=== PATIENT | female | born 1970 | race Caucasian/White ===

== ENCOUNTER 2016-10-30 19:26 | Emergency (ER) | payer OTHER ==
[~2016-10-30 19:26] MED LIST: ADV250/50 INH; AMBIEN10 MG PO; AZITHROMYCIN250 M1 PO; COZAAR50 MG PO; LAC PO; LATUDA80 M1 PO; LEVAQUIN750 MG PO; MEDDP PO; NOR5 PO; PULMICORT0.5 MG/2 M IH; SIMCOR PO; SINGULAIR10 MG PO; VENTOLIN H0.09 MG/A1 INH; ZOLOFT100 MG PO
[2016-10-30 22:07] VITALS: BP 110/65
== END 2016-10-30 22:08 | disposition home or self-care (01) ==
LOC: ED 19:26
DX: J45.901 Unspecified asthma with (acute) exacerbation (principal); F31.9 Bipolar disorder, unspecified; F43.10 Post-traumatic stress disorder, unspecified; F17.200 Nicotine dependence, unspecified, uncomplicated; Z88.8 Allergy status to other drugs, medicaments and biological substances
CPT/HCPCS: 99406; J7512; Q0092

== ENCOUNTER 2016-12-29 09:17 | Emergency (ER) | payer OTHER ==
[2016-12-29 09:24] VITALS: BP 136/99
== END 2016-12-29 11:13 | disposition left against medical advice (07) ==
LOC: ED 09:17
DX: Z53.21 Procedure and treatment not carried out due to patient leaving prior to being seen by health care provider (principal)

== ENCOUNTER 2017-02-21 05:11 | Emergency (ER) | payer OTHER ==
[~2017-02-21] VITALS: Ht 157.5 cm; Wt 74.8 kg
[2017-02-21 05:50] LABS: BASOPHIL % 0.6 % (0-2); PLATELET COUNT 301 x10^3mcL (130-400)
[2017-02-21 05:58] LABS: CALCIUM 8.9 mg/dL (8.5-10.1); CARBON DIOXIDE 24.3 mmol/L (21-32); CHLORIDE SERUM 107 mmol/L (98-107); CREATININE SERUM 0.9 mg/dL (0.6-1.0); GFR1 > 60 mL/min; GLUCOSE SERUM 117 mg/dL (74-106); POTASSIUM SERUM 3.7 mmol/L (3.5-5.1); SODIUM SERUM 140 mmol/L (136-145)
[2017-02-21 06:04] LABS: ALBUMIN 3.5 g/dL (3.4-5.0); ALKALINE PHOSPHATASE 91 U/L (46-116); ALT/SGPT 25 U/L (14-59); AST/SGOT 21 U/L (15-37); BILIRUBIN TOTAL 0.43 mg/dL (0.20-1.00); TOTAL PROTEIN, SERUM 7.7 g/dL (6.4-8.2)
[2017-02-21 09:54] LABS: AMPHETAMINE QUAL UR POSITIVE (NEG <=1000)
[2017-02-21 13:38] VITALS: BP 132/89
== END 2017-02-21 14:30 ==
LOC: ED 05:11
PROVIDERS: Emergency Medicine
DX: F31.9 Bipolar disorder, unspecified (principal); F43.9 Reaction to severe stress, unspecified; J45.909 Unspecified asthma, uncomplicated; G43.909 Migraine, unspecified, not intractable, without status migrainosus; F15.10 Other stimulant abuse, uncomplicated; Z79.899 Other long term (current) drug therapy; Z88.8 Allergy status to other drugs, medicaments and biological substances
CPT/HCPCS: 36415; G0480; J7620; Q0092

== ENCOUNTER 2017-03-20 20:11 | Inpatient (IN) | payer OTHER ==
[~2017-03-20] VITALS: Ht 160 cm; Wt 75.5 kg
[2017-03-20] MEDS ORDERED: SINGULAIR10 MG PO (21:09)
[2017-03-20] MEDS ORDERED: AMBIEN10 MG PO (21:09)
[2017-03-20] MEDS ORDERED: QVAR0.08 MG/Ac IH (21:09)
[2017-03-20] MEDS ORDERED: VENTOLIN H0.09 MG/A1 INH (21:10)
[2017-03-20 21:18] LABS: BASOPHIL % 0.5 % (0-2); PLATELET COUNT 322 x10^3mcL (130-400); RED CELL DISTRIBUTION WIDTH 13.9 % (11.5-14.5)
[2017-03-20 21:29] LABS: CARBON DIOXIDE 28.4 mmol/L (21-32); CHLORIDE SERUM 109 mmol/L (98-107); CREATININE SERUM 0.9 mg/dL (0.6-1.0); GFR1 > 60 mL/min; GLUCOSE SERUM 95 mg/dL (74-106); POTASSIUM SERUM 3.9 mmol/L (3.5-5.1); SODIUM SERUM 143 mmol/L (136-145)
[2017-03-20 21:56] VITALS: BP 134/84
[2017-03-20 22:02] VITALS: Ht 160 cm; Wt 75.5 kg
[2017-03-20 22:13] LABS: microscopic required? NO
[2017-03-20 22:25] LABS: urine erythrocyte NEGATIVE (NEGATIVE)
[2017-03-20 22:26] VITALS: BP 134/84
[2017-03-20 22:34] LABS: AMPHETAMINE QUAL UR POSITIVE (NEG <=1000)
[2017-03-20 22:43] LABS: CHOLESTEROL/HDL RATIO 5.3; PHOSPHOROUS 3.1 mg/dL (2.5-4.9)
[2017-03-20 22:46] LABS: T3 TOTAL 1.27 ng/mL
[2017-03-20 22:53] LABS: FREE T4 1.19 ng/dL (0.76-1.46); FREE THYROXINE INDEX 3.8 ug/dL (1.4-4.5); T4(THYROXINE) 10.4 ug/dL (4.7-13.3)
[2017-03-21 06:04] VITALS: BP 104/62
[2017-03-21 08:47] VITALS: BP 109/53
[2017-03-21 12:43] VITALS: BP 121/70
[2017-03-21 16:52] VITALS: BP 103/51
[2017-03-21 21:08] VITALS: BP 115/68
[2017-03-22 05:58] VITALS: BP 107/58
[2017-03-22 07:00] LABS: CALCIUM 8.2 mg/dL (8.5-10.1); CARBON DIOXIDE 21.3 mmol/L (21-32); CHLORIDE SERUM 111 mmol/L (98-107); CREATININE SERUM 0.8 mg/dL (0.6-1.0); GFR1 > 60 mL/min; GLUCOSE SERUM 123 mg/dL (74-106); POTASSIUM SERUM 4.1 mmol/L (3.5-5.1); SODIUM SERUM 142 mmol/L (136-145)
[2017-03-22 07:47] LABS: PLATELET COUNT 262 x10^3mcL (130-400); RED CELL DISTRIBUTION WIDTH 14.4 % (11.5-14.5)
[2017-03-22 09:46] LABS: BAND NEUTROPHIL 5 % (0-10); BASOPHIL 0 % (0-2); MONOCYTE 1 % (0-7); SEGMENTED NEUTROPHILS 87 % (37-75)
[2017-03-22 09:47] LABS: rbc morphology (normal/abnorm) ABNORMAL (NORMAL)
[2017-03-22 09:48] LABS: burr cell (echinocyte) 1+
[2017-03-22 09:49] LABS: ovalocyte/elliptocyte 1+
[2017-03-22 10:33] VITALS: BP 113/53
[2017-03-22 11:37] VITALS: BP 113/53
[2017-03-22] MEDS ORDERED: LIPI10 PO (11:51)
[2017-03-22] MEDS ORDERED: MEDDP PO (11:52)
[2017-03-22] MEDS ORDERED: ASPIR 8181 MG PO (12:15)
== END 2017-03-22 13:49 | disposition home or self-care (01) | DRG 189 ==
LOC: ED 20:11 → DU 21:10
PROVIDERS: Emergency Medicine; ADMIT Student in an Organized Health Care Education/Training Program
DX: J96.00 Acute respiratory failure, unspecified whether with hypoxia or hypercapnia (principal); J45.901 Unspecified asthma with (acute) exacerbation; E44.0 Moderate protein-calorie malnutrition; R73.03 Prediabetes; E78.2 Mixed hyperlipidemia; F15.10 Other stimulant abuse, uncomplicated; F12.10 Cannabis abuse, uncomplicated; F17.210 Nicotine dependence, cigarettes, uncomplicated; F32.9 Major depressive disorder, single episode, unspecified; F41.9 Anxiety disorder, unspecified; Z68.29 Body mass index [BMI] 29.0-29.9, adult
CPT/HCPCS: 82962; 83880; 84439; 94150; 99406; J2920; J2930; J7030; J7620; J7626; Q0092

== ENCOUNTER 2017-05-23 00:44 | Emergency (ER) | payer OTHER ==
[~2017-05-23 00:44] MED LIST changes: +ASPIR 8181 MG PO; +LIPI10 PO; +QVAR0.08 MG/Ac IH
[2017-05-23 02:17] VITALS: BP 126/74
== END 2017-05-23 02:17 | disposition home or self-care (01) ==
LOC: ED 00:44
DX: S93.402A Sprain of unspecified ligament of left ankle, initial encounter (principal); Z88.8 Allergy status to other drugs, medicaments and biological substances; X58.XXXA Exposure to other specified factors, initial encounter; Y93.89 Activity, other specified; Y99.8 Other external cause status; Y92.89 Other specified places as the place of occurrence of the external cause
CPT/HCPCS: Q0092

== ENCOUNTER 2017-05-29 20:44 | Emergency (ER) | payer OTHER ==
[2017-05-29 22:45] VITALS: BP 128/74
== END 2017-05-29 22:45 | disposition home or self-care (01) ==
LOC: ED 20:44
DX: L03.114 Cellulitis of left upper limb (principal); R21 Rash and other nonspecific skin eruption; J45.909 Unspecified asthma, uncomplicated; G43.909 Migraine, unspecified, not intractable, without status migrainosus; F43.10 Post-traumatic stress disorder, unspecified; Z88.8 Allergy status to other drugs, medicaments and biological substances
CPT/HCPCS: J1100

== ENCOUNTER 2017-06-11 23:47 | Emergency (ER) | payer OTHER ==
[~2017-06-11] VITALS: Ht 160 cm; Wt 75.3 kg
[2017-06-12 00:03] VITALS: Ht 160 cm; Wt 75.3 kg
[2017-06-12 01:35] VITALS: BP 134/95
== END 2017-06-12 01:35 | disposition home or self-care (01) ==
LOC: ED 23:47
DX: G43.909 Migraine, unspecified, not intractable, without status migrainosus (principal); R11.2 Nausea with vomiting, unspecified; F43.10 Post-traumatic stress disorder, unspecified; J45.909 Unspecified asthma, uncomplicated; Z88.8 Allergy status to other drugs, medicaments and biological substances; F17.210 Nicotine dependence, cigarettes, uncomplicated
CPT/HCPCS: J1885; J2765

== ENCOUNTER 2017-08-12 03:27 | Emergency (ER) | payer OTHER ==
[~2017-08-12] VITALS: Ht 165.1 cm; Wt 76.4 kg
[2017-08-12 03:40] VITALS: Ht 165.1 cm; Wt 76.4 kg
[2017-08-12 05:16] VITALS: BP 134/99
== END 2017-08-12 05:16 | disposition home or self-care (01) ==
LOC: ED 03:27
DX: G43.909 Migraine, unspecified, not intractable, without status migrainosus (principal); J45.909 Unspecified asthma, uncomplicated; F43.10 Post-traumatic stress disorder, unspecified; Z88.8 Allergy status to other drugs, medicaments and biological substances
CPT/HCPCS: J0780; J1885

== ENCOUNTER 2017-09-10 14:22 | Emergency (ER) | payer OTHER ==
[~2017-09-10] VITALS: Ht 160 cm; Wt 78.0 kg
[2017-09-10 14:32] VITALS: BP 143/86; Ht 160 cm; Wt 78.0 kg
== END 2017-09-10 17:09 | disposition left against medical advice (07) ==
LOC: ED 14:22
DX: Z53.21 Procedure and treatment not carried out due to patient leaving prior to being seen by health care provider (principal)

== ENCOUNTER 2017-09-12 20:50 | Emergency (ER) | payer OTHER ==
[~2017-09-12] VITALS: Ht 139.7 cm; Wt 78.0 kg
[2017-09-12 21:06] VITALS: Ht 139.7 cm; Wt 78.0 kg
[2017-09-12 22:34] VITALS: BP 146/103
== END 2017-09-12 22:34 | disposition home or self-care (01) ==
LOC: ED 20:50
DX: J20.9 Acute bronchitis, unspecified (principal); J45.909 Unspecified asthma, uncomplicated; G43.909 Migraine, unspecified, not intractable, without status migrainosus; Z88.8 Allergy status to other drugs, medicaments and biological substances
CPT/HCPCS: J7512; Q0092

== ENCOUNTER 2017-09-22 16:13 | Emergency (ER) | payer OTHER ==
[~2017-09-22] VITALS: Ht 160 cm; Wt 77.1 kg
[2017-09-22 16:33] VITALS: Ht 160 cm; Wt 77.1 kg
[2017-09-22 20:29] LABS: BASOPHIL % 0.4 % (0-2); PLATELET COUNT 297 x10^3mcL (130-400); RED CELL DISTRIBUTION WIDTH 13.9 % (11.5-14.5)
[2017-09-22 20:32] LABS: CALCIUM 9.2 mg/dL (8.5-10.1); CARBON DIOXIDE 26.6 mmol/L (21-32); CHLORIDE SERUM 104 mmol/L (98-107); CREATININE SERUM 0.9 mg/dL (0.6-1.0); GFR1 > 60 mL/min; GLUCOSE SERUM 89 mg/dL (74-106); POTASSIUM SERUM 4.6 mmol/L (3.5-5.1); SODIUM SERUM 141 mmol/L (136-145)
[2017-09-22 20:36] LABS: ALBUMIN 3.4 g/dL (3.4-5.0); ALKALINE PHOSPHATASE 89 U/L (46-116); ALT/SGPT 27 U/L (14-59); AMYLASE 64 U/L (25-115); AST/SGOT 21 U/L (15-37); BILIRUBIN TOTAL 0.34 mg/dL (0.20-1.00); LIPASE 135 IU/L (73-393); TOTAL PROTEIN, SERUM 6.9 g/dL (6.4-8.2)
[2017-09-22 23:18] VITALS: BP 123/86
== END 2017-09-22 23:18 | disposition home or self-care (01) ==
LOC: ED 16:13
PROVIDERS: Emergency Medicine
DX: K52.9 Noninfective gastroenteritis and colitis, unspecified (principal); F17.210 Nicotine dependence, cigarettes, uncomplicated; J45.909 Unspecified asthma, uncomplicated; F31.9 Bipolar disorder, unspecified; G43.909 Migraine, unspecified, not intractable, without status migrainosus; Z88.8 Allergy status to other drugs, medicaments and biological substances
CPT/HCPCS: J2765; J7030; Q9967